=== PATIENT | female | born 1955 | race Caucasian/White ===

== ENCOUNTER 2017-05-23 13:25 | Outpatient (CLI) | payer OTHER ==
[2017-05-23 12:49] LABS: BASOPHILS % (AUTO) 0.4 %; EOSINOPHILS # (AUTO) 0.2 10^3/uL (0.0-0.7); EOSINOPHILS % (AUTO) 4.3 %; HCT - HEMATOCRIT 41.9 % (37.0-47.0); HGB - HEMOGLOBIN 14.1 g/dL (12.0-16.0); LYMPHOCYTES # (AUTO) 1.5 10^3/uL (1.5-3.5); LYMPHOCYTES % (AUTO) 30.4 %; MEAN CORPUSCULAR HEMOGLOBIN 32.3 pg (27.0-31.0); MEAN CORPUSCULAR HGB CONC 33.6 g/dL (32.0-36.0); MEAN PLATELET VOLUME 8.1 fL (7.9-10.8); MONOCYTES # (AUTO) 0.3 10^3/uL (0.0-1.0); MONOCYTES % (AUTO) 6.6 %; NEUTROPHILS # (AUTO) 2.9 10^3/uL (1.5-6.6); NEUTROPHILS % (AUTO) 58.3 %; NUCLEATED RED BLOOD CELLS AUTO 0.1 /100WBC; RED BLOOD COUNT 4.36 10^6/uL (4.20-5.40); RED CELL DISTRIBUTION WIDTH 13.9 % (12.0-15.0); UNCORRECTED WHITE BLOOD COUNT 4.9 x10^3/uL; WHITE BLOOD COUNT 4.9 x10^3/uL (4.8-10.8)
[2017-05-23 13:02] LABS: ALBUMIN/GLOBULIN RATIO 1.5 (1.0-2.2); BILIRUBIN,TOTAL 0.8 mg/dL (0.2-1.0); BUN - BLOOD UREA NITROGEN 14 mg/dL (6-20); CALCIUM 9.2 mg/dL (8.5-10.3); CARBON DIOXIDE - CO2 26 mmol/L (21-32); CHLORIDE 103 mmol/L (101-111); CHOL/HDL RATIO 2.5 (<4.4); CHOLESTEROL 216 mg/dL; CREATININE 0.8 mg/dL (0.4-1.0); GFR - MDRD 73 (>89); GLUCOSE 98 mg/dL (70-100); HDL CHOLESTEROL 85 mg/dL; LDL/HDL RATIO 1.3 (<4.4); POTASSIUM 3.9 mmol/L (3.5-5.0); SODIUM 137 mmol/L (135-145); TRIGLYCERIDES 86 mg/dL; VLDL CHOLESTEROL 17 mg/dL
== END 2017-05-23 13:26 | disposition home or self-care (01) ==
LOC: LAB.WCP 13:25
PROVIDERS: ATTEND Family Medicine
DX: Z00.00 Encounter for general adult medical examination without abnormal findings (principal)
CPT/HCPCS: 36415; 80053; 80061; 84443; 85025

== ENCOUNTER 2017-06-01 16:13 | Outpatient (CLI) | payer OTHER ==
--- NOTE | 2017-06-05 13:44 | Mammography Report ---
DIGITAL SCREENING MAMMOGRAM: 06/01/2017 CLINICAL INDICATION: A 62-year-old nulliparous patient for screening. COMPARISON: 02/2016 TECHNIQUE: Routine CC and MLO projections were obtained of the breasts. FINDINGS: Scattered fibroglandular tissue is present within the breasts. There are no dominant kwame s, suspicious microcalcifications, or secondary signs of malignancy. In comparison to the previous st udies, there are no significant changes. ASSESSMENT: NO MAMMOGRAPHIC EVIDENCE OF MALIGNANCY. NO SIGNIFICANT INTERVAL CHANGES. RECOMMENDATION: Screening mammography is recommended annually. BIRADS category 1 - negative. STANDARD QUALIFYING STATEMENTS 1. This examination was reviewed with the aid of Computed-Aided Detection (CAD). 2. A negative or benign imaging report should not delay biopsy if clinically suspicious findings are present. Consider surgical consultation if warranted. More than 5% of cancers are not identified by i maging. 3. Dense breasts may obscure an underlying neoplasm. JOB #: [id number] EXT JOB #:[id number]
== END 2017-06-01 16:14 | disposition home or self-care (01) ==
LOC: DI 16:13
PROVIDERS: ATTEND Family Medicine
DX: Z12.31 Encounter for screening mammogram for malignant neoplasm of breast (principal)
CPT/HCPCS: 77067

== ENCOUNTER 2018-08-08 15:47 | Outpatient (CLI) | payer OTHER ==
--- NOTE | 2018-08-09 08:00 | Mammography Report ---
Reason: SCREENING MAMMO Procedure Date: 08/08/2018 Accession Number: [id number] / [id number] Procedure: JENNIFER - Screening Mammo w/Ector CPT Code: FULL RESULT: EXAM: Screening Mammo w/Ector DATE: 08/08/2018 4:17 PM CLINICAL HISTORY: Screening. No reported personal or family history of breast cancer. TECHNIQUE: Bilateral CC and MLO views were obtained. COMPARISON: 06/01/2017 and 03/17/2016 FINDINGS: The breasts demonstrate scattered fibroglandular densities bilaterally. Bilateral breasts: There are no suspicious masses, calcifications or areas of distortion. IMPRESSION: Negative examination RECOMMENDATION: Routine annual screening unless otherwise clinically indicated. BI-RADS CATEGORY 1: Negative STANDARD QUALIFYING STATEMENTS: 1. This examination was not reviewed with the aid of Computer-Aided Detection (CAD). 2. A negative or benign imaging report should not preclude biopsy if clinically suspicious findings are present. 3. Dense breasts may obscure an underlying neoplasm. 4. This examination was reviewed with the aid of 3D breast imaging (tomosynthesis).
== END 2018-08-08 15:48 | disposition home or self-care (01) ==
LOC: DI 15:47
DX: Z12.31 Encounter for screening mammogram for malignant neoplasm of breast (principal)
CPT/HCPCS: 77063; 77067

== ENCOUNTER 2019-07-02 10:46 | Day surgery (SDC) | payer OTHER ==
[2019-07-02] MEDS ORDERED: LACTATED RINGERS 1,000 ML IV ONE (11:02)
[2019-07-02] MEDS ORDERED: fentaNYL 250 MCG/5 ML VIAL IVP ONE (11:34)
[2019-07-02] MEDS ORDERED: MIDAZOLAM 2 MG/2 ML VIAL IVP ONE (11:34)
[2019-07-02 12:30] VITALS: BP 101/74
== END 2019-07-02 10:47 | disposition home or self-care (01) ==
LOC: SDS 10:46
PROVIDERS: ATTEND Internal Medicine Gastroenterology
PROC: 0DJD8ZZ Inspection of Lower Intestinal Tract, Via Natural or Artificial Opening Endoscopic (ICD-10-PCS; principal; 2019-07-02 12:00)
DX: Z12.11 Encounter for screening for malignant neoplasm of colon (principal); K57.30 Diverticulosis of large intestine without perforation or abscess without bleeding
CPT/HCPCS: 45378; J3010; J7120

== ENCOUNTER 2020-04-16 08:00 | Outpatient (CLI) | payer OTHER ==
[2020-04-16 18:07] LABS: BASOPHILS % (AUTO) 0.3 %; EOSINOPHILS # (AUTO) 0.2 10^3/uL (0.0-0.7); EOSINOPHILS % (AUTO) 2.4 %; LYMPHOCYTES # (AUTO) 1.7 10^3/uL (1.5-3.5); LYMPHOCYTES % (AUTO) 26.2 %; MEAN CORPUSCULAR HGB CONC 32.2 g/dL (32.0-36.0); MEAN CORPUSCULAR VOLUME 99.3 fL (81.0-99.0); MEAN PLATELET VOLUME 10.1 fL (7.9-10.8); MONOCYTES # (AUTO) 0.4 10^3/uL (0.0-1.0); MONOCYTES % (AUTO) 5.7 %; NEUTROPHILS # (AUTO) 4.1 10^3/uL (1.5-6.6); NEUTROPHILS % (AUTO) 65.2 %; PLT - PLATELET COUNT 304 10^3/uL (130-450); RED BLOOD COUNT 4.38 10^6/uL (4.20-5.40); RED CELL DISTRIBUTION WIDTH 14.3 % (12.0-15.0); WHITE BLOOD COUNT 6.3 x10^3/uL (4.8-10.8)
[2020-04-16 18:23] LABS: ALBUMIN 4.3 g/dL (3.2-5.5); ALBUMIN/GLOBULIN RATIO 1.4 (1.0-2.2); BILIRUBIN,TOTAL 0.4 mg/dL (0.2-1.0); CALCIUM 9.3 mg/dL (8.5-10.3); CREATININE 0.8 mg/dL (0.4-1.0); TOTAL PROTEIN 7.4 g/dL (6.7-8.2)
== END 2020-04-16 08:01 | disposition home or self-care (01) ==
LOC: LAB.WCP 08:00
PROVIDERS: ATTEND Family Medicine
DX: R10.9 Unspecified abdominal pain (principal)
CPT/HCPCS: 36415; 80053; 82150; 83690; 85025

== ENCOUNTER 2020-04-20 13:01 | Emergency (ER) | payer MEDICARE, OTHER ==
[2020-04-20] MEDS ORDERED: MAG HYDROX/AL HYDROX/SIMETH 30 ML UDC PO STA (13:56)
[2020-04-20] MEDS ORDERED: LIDOCAINE VISCOUS 2% 15 ML UDC MM STA (13:56)
[2020-04-20 13:57] LABS: BILIRUBIN,URINE NEGATIVE (NEGATIVE); GLUCOSE, URINE (UA) NEGATIVE (NEGATIVE); KETONES,URINE (UA) NEGATIVE (NEGATIVE); LEUKOCYTE ESTERASE, URINE NEGATIVE (NEGATIVE); NITRITE,URINE NEGATIVE (NEGATIVE); OCCULT BLOOD,URINE SMALL (NEGATIVE); PROTEIN,URINE NEGATIVE (NEGATIVE); UROBILINOGEN,URINE 0.2 (NORMAL) E.U./dL (NORMAL)
--- NOTE | 2020-04-20 13:58 | ED Physician Documentation ---
PD HPI ABD PAIN - Stated complaint Stated Complaint: ABD PX - Chief complaint Chief Complaint: Abd Pain - History obtained from History obtained from: Patient - Additional information Additional information: 65-year-old woman has been having upper abdominal pain for several months. It started as a migratory mild pain then progressed. Was associated with stress and was particularly bad a couple of months ago when her had a bypass. He did get better after starting Prilosec and got worse after starting Prilosec. She denies abdominal surgeries. She had a near syncopal episode when it was bad about a week ago. 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 04/20/20 - Allergies Allergies/Adverse Reactions: Allergies Allergy/AdvReac Type Severity Reaction Status Date / Time alendronate sodium Allergy Intermediate Rash Verified 04/20/20 13:24 [From Fosamax] cephalexin [From Keflex] Allergy Mild Rash Verified 04/20/20 13:24 - Social History Does the pt smoke?: No Smoking Status: Never smoker PD ED PE NORMAL - Vitals Vital signs reviewed: Yes - General General: Alert and oriented X 3, No acute distress - Cardiac Cardiac: RRR, No murmur - Respiratory Respiratory: No respiratory distress, Clear bilaterally - Abdomen Abdomen: Normal bowel sounds, Soft, Non tender - Derm Derm: Normal color, Warm and dry - Neuro Neuro: Alert and oriented X 3, No motor deficit, No sensory deficit, Normal speech Results - Vitals Vitals: Vital Signs - 24 hr 04/20/20 04/20/20 13:15 15:24 Temperature 37.1 C Heart Rate 100 82 Respiratory 18 20 Rate Blood Pressure 135/67 H 133/78 H O2 Saturation 98 98 Oxygen O2 Source Room air - Labs Labs: Laboratory Tests 04/20/20 04/20/20 04/20/20 13:39 13:52 13:52 WBC 6.4 RBC 4.03 L Hgb 13.5 Hct 39.0 MCV 96.8 MCH 33.5 H MCHC 34.6 RDW 13.4 Plt Count 273 MPV 9.6 Neut # (Auto) 4.3 Lymph # (Auto) 1.6 Frio # (Auto) 0.3 Eos # (Auto) 0.1 Baso # (Auto) 0.0 Absolute Nucleated RBC 0.00 Nucleated RBC % 0.0 Sodium 136 Potassium 3.5 Chloride 106 Carbon Dioxide 23 Anion Gap 7.0 BUN 20 Creatinine 0.8 Estimated GFR (MDRD) 72 L Glucose 171 H Calcium 8.8 Total Bilirubin 0.7 AST 22 ALT 20 Alkaline Phosphatase 58 Total Protein 6.7 Albumin 4.1 Globulin 2.6 Albumin/Globulin Ratio 1.6 Lipase 36 Urine Color YELLOW Urine Clarity CLEAR Urine pH 6.0 Ur Specific [place] 1.025 Urine Protein NEGATIVE Urine Glucose (UA) NEGATIVE Urine Ketones NEGATIVE Urine Occult Blood SMALL H Urine Nitrite NEGATIVE Urine Bilirubin NEGATIVE Urine Urobilinogen 0.2 (NORMAL) Ur Leukocyte Esterase NEGATIVE Urine RBC 0-5 Urine WBC 0-3 Ur Squamous Epith Cells FEW Squamous Urine Bacteria Rare Ur Microscopic Review INDICATED Urine Culture Comments NOT INDICATED PD MEDICAL DECISION MAKING - ED course ED course: 65-year-old woman presents with ongoing sometimes progressive epigastric pain, the response to PPI suggests ulcer but was referred here to evaluate the gallbladder. Ultrasound negative for same but incidental finding questioned on ultrasound and followed up with a CT showing hemangioma. Departure - Departure Disposition: 01 Home, Self Care Clinical Impression: Abdominal pain Condition: Good Record reviewed to determine appropriate education?: Yes Instructions: ED Abdominal Pain Unkn Cause Prescriptions: Omeprazole 20 mg PO DAILY #90 capsule. Comments: Based on your description and pattern this seems most consistent with gastritis or an ulcer. You should restart a proton pump inhibitor such as omeprazole and a prescription is provided. Return for new or worsening symptoms. Follow-up with your doctor as needed. The incidental lesion in your liver is consistent with a hemangioma and no follow-up is necessary for that.
[2020-04-20 14:01] LABS: CLARITY,URINE CLEAR (CLEAR)
[2020-04-20 14:11] LABS: BACTERIA,URINE Rare /HPF (None Seen); RBC,URINE 0-5 /HPF (0-5); SQUAMOUS EPITHELIAL CELL,UR FEW Squamous (<= Few)
[2020-04-20 14:12] LABS: BASOPHILS % (AUTO) 0.3 %; EOSINOPHILS # (AUTO) 0.1 10^3/uL (0.0-0.7); EOSINOPHILS % (AUTO) 1.9 %; HGB - HEMOGLOBIN 13.5 g/dL (12.0-16.0); LYMPHOCYTES # (AUTO) 1.6 10^3/uL (1.5-3.5); LYMPHOCYTES % (AUTO) 24.4 %; MEAN CORPUSCULAR HEMOGLOBIN 33.5 pg (27.0-31.0); MEAN CORPUSCULAR HGB CONC 34.6 g/dL (32.0-36.0); MEAN CORPUSCULAR VOLUME 96.8 fL (81.0-99.0); MEAN PLATELET VOLUME 9.6 fL (7.9-10.8); MONOCYTES # (AUTO) 0.3 10^3/uL (0.0-1.0); MONOCYTES % (AUTO) 5.3 %; NEUTROPHILS # (AUTO) 4.3 10^3/uL (1.5-6.6); NEUTROPHILS % (AUTO) 67.9 %; PLT - PLATELET COUNT 273 10^3/uL (130-450); RED BLOOD COUNT 4.03 10^6/uL (4.20-5.40); RED CELL DISTRIBUTION WIDTH 13.4 % (12.0-15.0); WHITE BLOOD COUNT 6.4 x10^3/uL (4.8-10.8)
[2020-04-20 14:13] LABS: ALBUMIN 4.1 g/dL (3.2-5.5); ALBUMIN/GLOBULIN RATIO 1.6 (1.0-2.2); BILIRUBIN,TOTAL 0.7 mg/dL (0.2-1.0); CALCIUM 8.8 mg/dL (8.5-10.3); CREATININE 0.8 mg/dL (0.4-1.0); TOTAL PROTEIN 6.7 g/dL (6.7-8.2)
--- NOTE | 2020-04-20 15:40 | Ultrasound Report ---
PROCEDURE: Abdomen Limited INDICATIONS: RUQ pain TECHNIQUE: Real-time scanning was performed of the abdominal and retroperitoneal organs, with image documentatio n. Color and pulse Doppler interrogation was also performed of the hepatic and splenic vessels, or o f the lesion of interest. COMPARISON: None. FINDINGS: Liver: Liver is normal in size and mildly increased in echogenicity. A focal lesion with heterogeneo us echogenicity is seen in the left hepatic lobe measuring 2.6 x 2.5 x 2.8 cm. Gallbladder: The gallbladder is mildly contracted, most likely related to timing of the most recent meal. There is no gallbladder wall thickening, gallstones, or pericholecystic fluid. Biliary ducts: No intrahepatic biliary ductal dilatation. Extrahepatic bile duct is 4 mm in caliber . Normal biliary caliber is 6-7 mm or less, or 10 mm or less post-cholecystectomy. Pancreas: Visualized portions of the pancreas appear normal. Kidneys: The right kidney is normal in size measuring 9.1 cm. A 5 mm echogenic focus in the interpol ar region of the right kidney is most likely a nonobstructing calculus despite the lack of posterior shadowing. No hydronephrosis. No solid renal masses. Miscellaneous: No free right upper quadrant fluid. IMPRESSION: 1. A heterogeneous masslike lesion is seen in the left hepatic lobe measuring 2.6 x 2.5 x 2.8 cm. Di fferential considerations include benign and malignant processes. Contrast enhanced CT is recommended for further evaluation. 2. Mildly increased hepatic echogenicity is nonspecific, but most commonly encountered in the settin g of diffuse hepatic steatosis. Other causes of hepatocellular disease are not excluded and clinical correlation is recommended. 3. Nonobstructing 5 mm calculus in the interpolar region of the right kidney. No hydronephrosis. 4. Normal gallbladder without gallstones or signs of cholecystitis. Reviewed by: Jean Claude Hatch MD on 04/20/2020 3:39 PM PDT Approved by: Jean Claude Hatch MD on 04/20/2020 3:39 PM PDT Station ID: [id number]
[2020-04-20] MEDS ORDERED: IOVERSOL 320 100 ML VIAL IVP ONE ×2 (15:44→16:17)
--- NOTE | 2020-04-20 16:40 | CT Report ---
PROCEDURE: ABDOMEN W/WO INDICATIONS: LIVER PROTOCOL FOR ABN SONOGRAM, IV ONLY CONTRAST: IV CONTRAST: Optiray 320 ml: 100 PO CONTRAST: *NO PO CONTRAST TECHNIQUE: 4 phase scanning was performed. After the administration of intravenous contrast, 5 mm thick section s acquired from the diaphragm to the symphysis. 5 mm coronal and sagittal reformats were acquired. For radiation dose reduction, the following was used: automated exposure control, adjustment of mA a nd/or kV according to patient size. COMPARISON: Abdominal ultrasound dated 04/20/2020 FINDINGS: Image quality: Excellent. Lung bases: Lung bases are clear. Heart size is normal. Liver: A hypodense lesion is seen in the peripheral portion of hepatic segment 2 measuring 2.7 x 2.1 x 1.2 cm, corresponding to the lesion seen on the abdominal ultrasound performed earlier the same da y. This lesion demonstrates peripheral nodular discontinuous enhancement on arterial phases with prog ressive filling on more delayed phases, compatible with a benign hemangioma. No additional focal lesi on is seen in the liver. Other solid organs: Gallbladder appears normal. Biliary system is non dilated. Pancreas is normal in morphology. Spleen is normal in size and enhancement. No adrenal nodules. Both kidneys demonstr ate normal size and enhancement, without hydronephrosis. A 3 mm nonobstructing calculus is seen in t he interpolar region of the right kidney. There is no hydronephrosis. Nodes and vessels: No retroperitoneal or mesenteric adenopathy by size criteria. Aorta and inferior vena cava are normal in size. Minimal atherosclerotic calcifications are seen in the aorta. Bowel and peritoneum: Unenhanced bowel loops are normal in caliber. No free fluid or air. Bones: No suspicious bony lesions. No vertebral body compression fractures. Degenerative changes a re seen in the included lumbar spine. Miscellaneous: No ventral hernias. IMPRESSION: 1. Focal 2.7 cm lesion in the peripheral left hepatic lobe corresponds to the lesion seen on ultraso und from earlier the same day and has the imaging characteristics of a benign hemangioma. No addition al liver lesion is seen. 2. Nonobstructing 3 mm calculus in the interpolar region of the right kidney. No hydronephrosis. Reviewed by: Jean Claude Hatch MD on 04/20/2020 4:39 PM PDT Approved by: Jean Claude Hatch MD on 04/20/2020 4:39 PM PDT Station ID: [id number]
[2020-04-20 16:52] VITALS: BP 130/69
== END 2020-04-20 17:00 | disposition home or self-care (01) ==
LOC: ED 13:01
DX: R10.13 Epigastric pain (principal)
CPT/HCPCS: 36415; 74170; 76705; 80053; 81001; 83690; 85025; 99284; A9270; Q9967; 81003; 87086

== ENCOUNTER 2020-09-08 08:57 | Emergency (ER) | payer OTHER, MEDICARE ==
--- NOTE | 2020-09-08 09:58 | ED Physician Documentation ---
History of Present Illness - Stated complaint Stated Complaint: FEVER/FEMALE - Chief complaint Chief Complaint: UTI - History obtained from History obtained from: Patient - History of Present Illness Timing: How many weeks ago (1) Pain level max: 0 Pain level now: 0 - Additonal information Additional information: Patient is a 65-year-old female who presents to the emergency department stating that she has had dysuria for the past week or so. Increased urinary frequency. She had fever and chills last night. Fever was subjective. Has mild dysuria at the end of her stream. No back pain. No abdominal pain. No vomiting. No cough. No congestion. Contacted her doctor who referred her here for a uri nalysis. 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 04/20/20 Sulfamethox/Trimeth 800/160 1 each PO BID #14 tablet 09/08/20 [Bactrim Ds 800/160] - Allergies Allergies/Adverse Reactions: Allergies Allergy/AdvReac Type Severity Reaction Status Date / Time alendronate sodium Allergy Intermediate Rash Verified 09/08/20 09:08 [From Fosamax] cephalexin [From Keflex] Allergy Mild Rash Verified 09/08/20 09:08 - Social History Does the pt smoke?: No Smoking Status: Never smoker PD ED PE NORMAL - Vitals Vital signs reviewed: Yes - General General: Alert and oriented X 3, No acute distress, Well developed/nourished - HEENT HEENT: Moist mucous membranes - Neck Neck: Supple, no meningeal sign - Cardiac Cardiac: RRR, Strong equal pulses - Respiratory Respiratory: No respiratory distress, Clear bilaterally - Abdomen Abdomen: Soft, Non tender, Non distended - Back Back: No CVA TTP - Derm Derm: Warm and dry - Extremities Extremities: No edema - Neuro Neuro: Alert and oriented X 3 - Psych Psych: Normal mood, Normal affect Results - Vitals Vitals: Vital Signs - 24 hr 09/08/20 09/08/20 09:08 10:29 Temperature 37.3 C 36.9 C Heart Rate 105 H 99 Respiratory 18 16 Rate Blood Pressure 131/82 H 128/76 O2 Saturation 100 100 Oxygen O2 Source Room air - Labs Labs: Laboratory Tests 09/08/20 09:50 Urine Color YELLOW Urine Clarity HAZY Urine pH 6.5 Ur Specific [place] 1.010 Urine Protein NEGATIVE Urine Glucose (UA) NEGATIVE Urine Ketones NEGATIVE Urine Occult Blood MODERATE H Urine Nitrite NEGATIVE Urine Bilirubin NEGATIVE Urine Urobilinogen 0.2 (NORMAL) Ur Leukocyte Esterase SMALL H Urine RBC 6-10 H Urine WBC >25 H Ur Squamous Epith Cells FEW Squamous Urine Bacteria Few Ur Microscopic Review INDICATED Urine Culture Comments INDICATED PD MEDICAL DECISION MAKING - ED course Complexity details: reviewed results, re-evaluated patient, considered differential, d/w patient ED course: Patient with a UTI. We will place on antibiotics for this. Patient is well- appearing, nontoxic. Afebrile. No CVA tenderness. No evidence of urosepsis. No evidence of pyelonephritis. Patient counseled regarding signs and symptoms for which I believe and urgent re-evaluation would be necessary. Patient with good understanding of and agreement to plan and is comfortable going home at this time This document was made in part using voice recognition software. While efforts are made to proofread this document, sound alike and grammatical errors may occur. Departure - Departure Disposition: 01 Home, Self Care Clinical Impression: Urinary tract infection Qualifiers: Urinary tract infection type: acute cystitis Hematuria presence: without hematuria Qualified Code(s): N30.00 - Acute cystitis without hematuria Condition: Good Instructions: ED UTI Cystitis Female Follow-Up: Henrietta Joe DO [Primary Care Provider] - Within 1 week Prescriptions: Sulfamethox/Trimeth 800/160 [Bactrim Ds 800/160] 1 each PO BID #14 tablet Comments: Take all antibiotics until gone. Return if you worsen. Follow-up with your doctor for further care. Discharge Date/Time: 09/08/20 10:36
[2020-09-08 10:01] LABS: BILIRUBIN,URINE NEGATIVE (NEGATIVE); GLUCOSE, URINE (UA) NEGATIVE (NEGATIVE); KETONES,URINE (UA) NEGATIVE (NEGATIVE); LEUKOCYTE ESTERASE, URINE SMALL (NEGATIVE); NITRITE,URINE NEGATIVE (NEGATIVE); OCCULT BLOOD,URINE MODERATE (NEGATIVE); PH,URINE 6.5 PH (5.0-7.5); PROTEIN,URINE NEGATIVE (NEGATIVE); UROBILINOGEN,URINE 0.2 (NORMAL) E.U./dL (NORMAL)
[2020-09-08 10:04] LABS: CLARITY,URINE HAZY (CLEAR)
[2020-09-08 10:17] LABS: BACTERIA,URINE Few /HPF (None Seen); SQUAMOUS EPITHELIAL CELL,UR FEW Squamous (<= Few)
[2020-09-08 10:30] VITALS: BP 128/76
== END 2020-09-08 10:36 | disposition home or self-care (01) ==
LOC: ED 08:57
DX: N30.00 Acute cystitis without hematuria (principal)
CPT/HCPCS: 81001; 81003; 87086; 87181; 99283

== ENCOUNTER 2021-04-02 09:21 | Outpatient (CLI) | payer OTHER, MEDICARE ==
--- NOTE | 2021-04-05 16:39 | Mammography Report ---
BILATERAL DIGITAL SCREENING MAMMOGRAM 3D/2D: 04/02/2021 CLINICAL: Routine screening. Comparison is made to exams dated: 08/08/2018 mammogram, 06/01/2017 mammogram, and 03/17/2016 mammogr am - [facility]. There are scattered fibroglandular elements in both breasts. No significant masses, calcifications, or other findings are seen in either breast. There has been no significant interval change. IMPRESSION: NEGATIVE There is no mammographic evidence of malignancy. A 1 year screening mammogram is recommended. This exam was interpreted at Station ID: [id number]. NOTE: For mammograms, a report in lay terms will be sent to the patient. Approximately 15% of breast malignancies will not be visualized mammographically. In the management of a palpable breast mass, a negative mammogram must not discourage biopsy of a clinically suspicious lesion. Electronically Signed By: Dioni Anton M.D. aty/penrad:04/02/2021 12:02:25 ACR BI-RADS Category 1: Negative 3341F PARENCHYMAL PATTERN: (A) - The breast(s) demonstrate(s) scattered fibroglandular densities. BI-RADS CATEGORY: (1) - 1 RECOMMENDATION: (ANNUAL) - Recommend routine annual screening mammography. [id number] 1 year screening LATERALITY: (B)
== END 2021-04-02 09:22 | disposition home or self-care (01) ==
LOC: DI 09:21
DX: Z12.31 Encounter for screening mammogram for malignant neoplasm of breast (principal)

== ENCOUNTER 2021-06-01 10:55 | Outpatient (CLI) | payer OTHER, MEDICARE ==
[2021-06-01 17:53] LABS: BASOPHILS % (AUTO) 0.5 %; EOSINOPHILS # (AUTO) 0.1 10^3/uL (0.0-0.7); EOSINOPHILS % (AUTO) 1.9 %; HCT - HEMATOCRIT 40.8 % (37.0-47.0); HGB - HEMOGLOBIN 13.3 g/dL (12.0-16.0); LYMPHOCYTES # (AUTO) 1.4 10^3/uL (1.5-3.5); MEAN CORPUSCULAR HGB CONC 32.6 g/dL (32.0-36.0); MEAN CORPUSCULAR VOLUME 98.1 fL (81.0-99.0); MEAN PLATELET VOLUME 10.5 fL (7.9-10.8); MONOCYTES # (AUTO) 0.4 10^3/uL (0.0-1.0); MONOCYTES % (AUTO) 6.3 %; NEUTROPHILS # (AUTO) 3.8 10^3/uL (1.5-6.6); PLT - PLATELET COUNT 274 10^3/uL (130-450); RED BLOOD COUNT 4.16 10^6/uL (4.20-5.40); RED CELL DISTRIBUTION WIDTH 14.2 % (12.0-15.0); WHITE BLOOD COUNT 5.7 x10^3/uL (4.8-10.8)
[2021-06-01 18:11] LABS: ALBUMIN 4.3 g/dL (3.2-5.5); ALBUMIN/GLOBULIN RATIO 1.4 (1.0-2.2); ALKALINE PHOSPHATASE 43 IU/L (42-121); ALT ALANINE AMINOTRANSFERASE 18 IU/L (10-60); AST ASPARTATE AMINOTRANSFERASE 22 IU/L (10-42); BILIRUBIN,TOTAL 0.7 mg/dL (0.2-1.0); BUN - BLOOD UREA NITROGEN 16 mg/dL (6-20); CALCIUM 9.2 mg/dL (8.5-10.3); CARBON DIOXIDE - CO2 27 mmol/L (21-32); CHLORIDE 99 mmol/L (101-111); CHOL/HDL RATIO 2.6 (<4.4); CHOLESTEROL 229 mg/dL; CREATININE 0.8 mg/dL (0.4-1.0); GFR - MDRD 72 (>89); GLUCOSE 97 mg/dL (70-100); HDL CHOLESTEROL 87 mg/dL; LDL CHOLESTEROL,CALCULATED 117 mg/dL; LDL/HDL RATIO 1.3 (<4.4); POTASSIUM 3.9 mmol/L (3.5-5.0); SODIUM 136 mmol/L (135-145); TOTAL PROTEIN 7.3 g/dL (6.7-8.2); TRIGLYCERIDES 125 mg/dL; VLDL CHOLESTEROL 25 mg/dL
== END 2021-06-01 23:59 | disposition home or self-care (01) ==
LOC: LAB.WCP 10:55
PROVIDERS: ATTEND Family Medicine
DX: E78.5 Hyperlipidemia, unspecified (principal); R73.01 Impaired fasting glucose; M85.88 Other specified disorders of bone density and structure, other site
CPT/HCPCS: 36415; 80053; 80061; 83721; 85025

== ENCOUNTER 2021-06-07 07:43 | Outpatient (CLI) | payer OTHER, MEDICARE ==
--- NOTE | 2021-06-07 16:12 | DEXA Report ---
PROCEDURE: Dexa Spine and/or Hip INDICATIONS: OSTEOPENIA TECHNIQUE: Dual energy x-ray absorptiometry (DXA) was performed on a [employer] System. Regions measur ed are the AP Spine, femoral neck, and if needed forearm. COMPARISON: 03/09/2016. FINDINGS: Lumbar Spine: Bone Mineral Density 1.208 g/cm/cm,T score 0.2, normal Left Hip: Bone Mineral Density 0.859 g/cm/cm,T score minus 1., Osteopenia Left Femoral Neck: Bone Mineral Density 0.738 g/cm/cm, T score -2.2, osteopenia (T score greater or equal to -1.0: NORMAL) (T score from -1.1 to -2.4: OSTEOPENIA) (T score less than or equal to -2.5 to: OSTEOPOROSIS) Impression: Osteopenia. Bone mineral density has decreased 0.2% in the interval since prior exam obta ined 03/17/2016. Patients with diagnosis of osteoporosis or osteopenia should have regular bone mineral density assess ment. For those eligible for Medicare, routine testing is allowed once every 2 years. Testing frequ ency can be increased for patients who have rapidly progressing disease or for those who are receivin g medical therapy to restore bone mass. Reviewed by: Radha Li MD, PhD on 06/07/2021 4:10 PM PDT Approved by: Radha Li MD, PhD on 06/07/2021 4:10 PM PDT Station ID: [id number]
== END 2021-06-07 07:44 | disposition home or self-care (01) ==
LOC: DI 07:43
PROVIDERS: ATTEND Family Medicine
DX: M85.89 Other specified disorders of bone density and structure, multiple sites (principal)

== ENCOUNTER 2021-06-07 07:54 | Outpatient (CLI) | payer OTHER, MEDICARE ==
--- NOTE | 2021-06-07 08:59 | XRAY Report ---
PROCEDURE: Cervical Spine 2 View INDICATIONS: NECK PAIN,ACUTE PARESTHESIA,HANDS, LBP TECHNIQUE: 3 view(s) of the cervical spine were acquired. COMPARISON: None. FINDINGS: C-SPINE: No acute, displaced fracture or malalignment. The vertebral body heights are maintained.Mini mal grade 1 anterolisthesis at C3-4 and C4-5. Mild to moderate disc height loss at C5-7. Uncovertebra l/facet arthrosis is noted. SOFT TISSUES: No prevertebral soft tissue thickening. IMPRESSION: 1.No acute osseous abnormality of the cervical spine. Reviewed by: Spencer Torres MD on 06/07/2021 8:58 AM PDT Approved by: Spencer Torres MD on 06/07/2021 8:58 AM PDT Station ID: [id number]
--- NOTE | 2021-06-07 09:00 | XRAY Report ---
PROCEDURE: SI Joints INDICATIONS: NECK PAIN,ACUTE PARESTHESIA,HANDS, LBP,SACROILIITIS TECHNIQUE: 3 views of the sacroiliac joints were acquired. COMPARISON: None. FINDINGS: BONES: No acute, displaced fracture or dislocation. The sacroiliac joints are maintained. No widening of the pubic symphysis. SOFT TISSUES: No focal abnormality. IMPRESSION: 1.No acute osseous abnormality. Reviewed by: Spencer Torres MD on 06/07/2021 8:59 AM PDT Approved by: Spencer Torres MD on 06/07/2021 8:59 AM PDT Station ID: [id number]
--- NOTE | 2021-06-07 09:02 | XRAY Report ---
PROCEDURE: Lumbar Spine 2 View INDICATIONS: NECK PAIN,ACUTE PARESTHESIA,HANDS, LBP,SACROILITIS TECHNIQUE: 2 views of the lumbar spine were acquired. COMPARISON: None. FINDINGS: L-SPINE: 5 nonrib-bearing vertebrae. Small ribs at T12. No acute displaced fracture or traumatic subluxation. Minimal grade 1 anterolisthesis at L4-5. The ve rtebral body heights are preserved. Mild to moderate disc height loss at L4-S1. Facet arthrosis causi ng neural foraminal narrowing at L5-S1. The sacroiliac joints are patent. SOFT TISSUES: No focal abnormality. IMPRESSION: 1.No acute osseous abnormality of the lumbar spine. Reviewed by: Spencer Torres MD on 06/07/2021 9:01 AM PDT Approved by: Spencer Torres MD on 06/07/2021 9:01 AM PDT Station ID: [id number]
== END 2021-06-07 07:55 | disposition home or self-care (01) ==
LOC: DI 07:54
PROVIDERS: ATTEND Family Medicine
DX: M54.2 Cervicalgia (principal); R20.2 Paresthesia of skin; M54.50 Low back pain, unspecified; M46.1 Sacroiliitis, not elsewhere classified; M85.89 Other specified disorders of bone density and structure, multiple sites

== ENCOUNTER 2021-06-14 09:58 | Outpatient (CLI) | payer OTHER, MEDICARE | END 2021-06-14 23:59 | LOC: LAB.N 09:58 | PROVIDERS: ATTEND Physician Assistant Medical | DX: N30.00 Acute cystitis without hematuria (principal) | CPT/HCPCS: 87086; 87181 ==

== ENCOUNTER 2021-06-22 11:41 | Outpatient (CLI) | payer OTHER, MEDICARE | END 2021-06-22 23:59 | LOC: LAB.N 11:41 | PROVIDERS: ATTEND Family Medicine | DX: R39.9 Unspecified symptoms and signs involving the genitourinary system (principal) | CPT/HCPCS: 87086 ==

== ENCOUNTER 2021-10-21 08:00 | Outpatient (CLI) | payer OTHER, MEDICARE | END 2021-10-21 23:59 | LOC: LAB.N 08:00 | PROVIDERS: ATTEND Registered Nurse | DX: R30.0 Dysuria (principal) | CPT/HCPCS: 87077; 87086; 87181 ==

== ENCOUNTER 2022-03-21 08:00 | Outpatient (CLI) | payer OTHER, MEDICARE | END 2022-03-21 23:59 | disposition home or self-care (01) | LOC: LAB.N 08:00 | PROVIDERS: ATTEND Registered Nurse | DX: N30.00 Acute cystitis without hematuria (principal) | CPT/HCPCS: 87077; 87086; 87181 ==

== ENCOUNTER 2022-04-28 13:53 | Outpatient (CLI) | payer OTHER, MEDICARE ==
--- NOTE | 2022-04-29 08:05 | Mammography Report ---
BILATERAL DIGITAL SCREENING MAMMOGRAM 3D/2D: 04/28/2022 CLINICAL: Routine screening. Comparison is made to exams dated: 04/02/2021 mammogram, 06/01/2017 mammogram, 08/08/2018 mammogram, and 03/17/2016 mammogram - [facility]. There are scattered areas of fibroglandular density in both breasts (category b / 25%-50% glandular t issue). No significant masses, calcifications, or other findings are seen in either breast. There has been no significant interval change. IMPRESSION: NEGATIVE There is no mammographic evidence of malignancy. A 1 year screening mammogram is recommended. Based on the Tyrer Cuzick model (a risk assessment model) the patients lifetime risk is 5.5% and her 10 year risk is 2.9%. According to the ACR, ACS, and NCCN guidelines, an annual breast MRI exam josé luis g with mammogram is recommended if the patients lifetime risk is 20% or greater. This exam was interpreted at Station ID: [id number]. NOTE: For mammograms, a report in lay terms will be sent to the patient. Approximately 15% of breast malignancies will not be visualized mammographically. In the management of a palpable breast mass, a negative mammogram must not discourage biopsy of a clinically suspicious lesion. Electronically Signed By: Douglas Britt M.D. [facility] [place]:04/28/2022 16:47:33 ACR BI-RADS Category 1: Negative 3341F PARENCHYMAL PATTERN: (A) - The breast(s) demonstrate(s) scattered fibroglandular densities. BI-RADS CATEGORY: (1) - 1 RECOMMENDATION: (ANNUAL) - Recommend routine annual screening mammography. [id number] 1 year screening LATERALITY: (B)
== END 2022-04-28 13:54 | disposition home or self-care (01) ==
LOC: DI 13:53
DX: Z12.31 Encounter for screening mammogram for malignant neoplasm of breast (principal)

== ENCOUNTER 2022-05-24 07:12 | Outpatient (CLI) | payer OTHER, MEDICARE ==
[2022-05-24 12:23] LABS: BASOPHILS % (AUTO) 0.5 %; EOSINOPHILS # (AUTO) 0.2 10^3/uL (0.0-0.7); EOSINOPHILS % (AUTO) 4.1 %; HCT - HEMATOCRIT 40.5 % (37.0-47.0); HGB - HEMOGLOBIN 13.6 g/dL (12.0-16.0); MEAN CORPUSCULAR HEMOGLOBIN 32.2 pg (27.0-31.0); MEAN CORPUSCULAR HGB CONC 33.6 g/dL (32.0-36.0); MEAN CORPUSCULAR VOLUME 95.7 fL (81.0-99.0); MEAN PLATELET VOLUME 9.8 fL (7.9-10.8); MONOCYTES # (AUTO) 0.4 10^3/uL (0.0-1.0); MONOCYTES % (AUTO) 7.2 %; NEUTROPHILS % (AUTO) 52.7 %; PLT - PLATELET COUNT 289 10^3/uL (130-450); RED BLOOD COUNT 4.23 10^6/uL (4.20-5.40); WHITE BLOOD COUNT 5.7 x10^3/uL (4.8-10.8)
[2022-05-24 13:31] LABS: ALBUMIN/GLOBULIN RATIO 1.4 (1.0-2.2); ALKALINE PHOSPHATASE 45 IU/L (42-121); ALT ALANINE AMINOTRANSFERASE 21 IU/L (10-60); AST ASPARTATE AMINOTRANSFERASE 22 IU/L (10-42); BILIRUBIN,TOTAL 0.6 mg/dL (0.2-1.0); BUN - BLOOD UREA NITROGEN 21 mg/dL (6-20); CALCIUM 9.3 mg/dL (8.5-10.3); CARBON DIOXIDE - CO2 25 mmol/L (21-32); CHLORIDE 103 mmol/L (101-111); CHOL/HDL RATIO 2.5 (<4.4); CHOLESTEROL 209 mg/dL; CREATININE 0.8 mg/dL (0.4-1.0); GFR - MDRD 72 (>89); GLUCOSE 98 mg/dL (70-100); HDL CHOLESTEROL 84 mg/dL; LDL CHOLESTEROL,CALCULATED 112 mg/dL; LDL/HDL RATIO 1.3 (<4.4); POTASSIUM 4.2 mmol/L (3.5-5.0); SODIUM 138 mmol/L (135-145); TOTAL PROTEIN 6.9 g/dL (6.7-8.2); TRIGLYCERIDES 63 mg/dL; VLDL CHOLESTEROL 13 mg/dL
[2022-05-24 14:01] LABS: THYROID STIMULATING HORMONE 1.52 uIU/mL (0.34-5.60)
== END 2022-05-24 07:13 | disposition home or self-care (01) ==
LOC: LAB.N 07:12
PROVIDERS: ATTEND Physician Assistant
DX: E78.5 Hyperlipidemia, unspecified (principal); Z51.81 Encounter for therapeutic drug level monitoring; Z13.29 Encounter for screening for other suspected endocrine disorder
CPT/HCPCS: 36415; 80053; 80061; 83721; 84443; 85025

== ENCOUNTER 2022-06-07 12:59 | Outpatient (CLI) | payer OTHER, MEDICARE ==
--- NOTE | 2022-06-07 15:40 | XRAY Report ---
PROCEDURE: Cervical Spine Comp w/Flex/Ext INDICATIONS: PARESTHESIA, HANDS TECHNIQUE: 7 views of the cervical spine were acquired including flexion and extension oblique views . COMPARISON: None. FINDINGS: Bones: No fractures or dislocations to the T1 level. There is trace, approximately 2 to 3 mm of C3- C4 and C4-C5 anterolisthesis. No suspicious bony lesions. Moderate C5-C6 and C6 on C7 degenerative di sc disease. Mild facet appear to noted throughout the cervical spine. There is normal range of motion between flexion and extension, with preserved normal bony alignment. Oblique views demonstrate mild bilateral C3-C4, C4-C5, C5-C6 and C6-7 C7 neural foraminal narrowing. Soft tissues: Prevertebral soft tissues are normal in thickness. IMPRESSION: 1. Multilevel degenerative disc disease. 2. Multilevel facet arthropathy. 3. No fracture. No acute osseous lesion. If there is continued clinical concern for pathology, then M RI should be considered for further evaluation. Reviewed by: Radha Li MD, PhD on 06/07/2022 3:38 PM PDT Approved by: Radha Li MD, PhD on 06/07/2022 3:38 PM PDT Station ID: [id number]
== END 2022-06-07 13:00 | disposition home or self-care (01) ==
LOC: DI.N 12:59
PROVIDERS: ATTEND Physician Assistant
DX: R20.2 Paresthesia of skin (principal); M43.12 Spondylolisthesis, cervical region; M47.812 Spondylosis without myelopathy or radiculopathy, cervical region; M50.323 Other cervical disc degeneration at C6-C7 level; M48.02 Spinal stenosis, cervical region

== ENCOUNTER 2022-06-16 08:00 | Outpatient (CLI) | payer OTHER, MEDICARE ==
[2022-06-16 21:28] LABS: BILIRUBIN,URINE NEGATIVE (NEGATIVE); GLUCOSE, URINE (UA) NEGATIVE (NEGATIVE); KETONES,URINE (UA) NEGATIVE (NEGATIVE); LEUKOCYTE ESTERASE, URINE TRACE (NEGATIVE); NITRITE,URINE NEGATIVE (NEGATIVE); OCCULT BLOOD,URINE TRACE-INTA (NEGATIVE); PROTEIN,URINE NEGATIVE (NEGATIVE); UROBILINOGEN,URINE 0.2 (NORMAL) E.U./dL (NORMAL)
[2022-06-16 21:30] LABS: CLARITY,URINE CLEAR (CLEAR)
[2022-06-16 21:43] LABS: RBC,URINE 0-5 /HPF (0-5); WBC,URINE >25 /HPF (0-5)
[2022-06-16 21:44] LABS: BACTERIA,URINE Rare /HPF (None Seen); SQUAMOUS EPITHELIAL CELL,UR RARE Squamous (<= Few)
== END 2022-06-16 23:59 | disposition home or self-care (01) ==
LOC: LAB.N 08:00
PROVIDERS: ATTEND Emergency Medicine
DX: R30.0 Dysuria (principal)
CPT/HCPCS: 81001; 87077; 87086

== ENCOUNTER 2022-10-17 09:58 | Outpatient (CLI) | payer MEDICARE, OTHER ==
--- NOTE | 2022-10-17 15:58 | MRI Report ---
PROCEDURE: CERVICAL SPINE WO INDICATIONS: CERVICAL RADICULOPATHY TECHNIQUE: Noncontrast sagittal T1 spin echo and T2 fast spin echo, sagittal STIR, foraminal oblique sagittal T2 fast spin echo, and axial gradient echo or T2 fast spin echo through the cervical spine. COMPARISON: None. FINDINGS: Image quality: Excellent. Alignment and Curvature: Grade 1 anterolisthesis of C4-5. Bone Marrow: Marrow demonstrates normal overall signal. Spinal Cord: Visualized spinal cord has normal size and signal. No cerebellar tonsillar herniation. Paraspinous Soft Tissues: No paravertebral masses. Prevertebral soft tissues are normal in thicknes s. C2-C3: No disc bulge. The foramina and central canal are patent. C3-C4: Diffuse disc bulge and uncovertebral hypertrophy cause severe right and mild left foraminal stenosis. The central canal has mild stenosis. C4-C5: Diffuse disc bulge and uncovertebral hypertrophy cause moderate bilateral foraminal stenosis. The central canal has mild stenosis. C5-C6: Diffuse disc bulge with uncovertebral hypertrophy bilaterally and a disc osteophyte on the ri ght causes severe right and moderate left foraminal stenosis. The central canal has moderate stenosis asymmetric on the right. C6-C7: Diffuse disc bulge and uncovertebral hypertrophy cause mild right and moderate left foraminal stenosis. The central canal is patent. C7-T1: No disc bulge. The foramina and central canal are patent. IMPRESSION: 1. Multilevel degenerative disc disease most severe at C5-6 and C6-7 with severe right and moderate l eft foraminal stenosis at C5-6 and mild right and moderate left foraminal stenosis at C6-7 as detaile d above. 2. No abnormal cord signal. Reviewed by: Emil Fischer on 10/17/2022 3:56 PM PST Approved by: Emil Fischer on 10/17/2022 3:56 PM PST Station ID: [id number]
== END 2022-10-17 09:59 | disposition home or self-care (01) ==
LOC: DI 09:58
PROVIDERS: ATTEND Physician Assistant
DX: M50.122 Cervical disc disorder at C5-C6 level with radiculopathy (principal); M48.02 Spinal stenosis, cervical region

== ENCOUNTER 2023-07-06 07:11 | Outpatient (CLI) | payer MEDICARE ==
[2023-07-06 07:28] LABS: BASOPHILS % (AUTO) 0.5 %; EOSINOPHILS # (AUTO) 0.2 10^3/uL (0.0-0.7); EOSINOPHILS % (AUTO) 3.6 %; HCT - HEMATOCRIT 41.8 % (37.0-47.0); HGB - HEMOGLOBIN 14.1 g/dL (12.0-16.0); LYMPHOCYTES % (AUTO) 35.8 %; MEAN CORPUSCULAR HEMOGLOBIN 31.6 pg (27.0-31.0); MEAN CORPUSCULAR HGB CONC 33.7 g/dL (32.0-36.0); MEAN CORPUSCULAR VOLUME 93.7 fL (81.0-99.0); MEAN PLATELET VOLUME 9.2 fL (7.9-10.8); MONOCYTES # (AUTO) 0.4 10^3/uL (0.0-1.0); MONOCYTES % (AUTO) 7.3 %; NEUTROPHILS % (AUTO) 52.6 %; PLT - PLATELET COUNT 296 10^3/uL (130-450); RED BLOOD COUNT 4.46 10^6/uL (4.20-5.40); RED CELL DISTRIBUTION WIDTH 14.3 % (12.0-15.0); WHITE BLOOD COUNT 5.6 x10^3/uL (4.8-10.8)
[2023-07-06 07:39] LABS: ALBUMIN 4.4 g/dL (3.2-5.5); ALBUMIN/GLOBULIN RATIO 1.9 (1.0-2.2); ALKALINE PHOSPHATASE 55 IU/L (42-121); ALT ALANINE AMINOTRANSFERASE 18 IU/L (10-60); AST ASPARTATE AMINOTRANSFERASE 21 IU/L (10-42); BILIRUBIN,TOTAL 0.4 mg/dL (0.2-1.0); BUN - BLOOD UREA NITROGEN 19 mg/dL (6-20); CALCIUM 9.6 mg/dL (8.5-10.3); CARBON DIOXIDE - CO2 24 mmol/L (21-32); CHLORIDE 103 mmol/L (101-111); CHOL/HDL RATIO 2.6 (<4.4); CHOLESTEROL 212 mg/dL; CREATININE 0.8 mg/dL (0.6-1.3); GFR - MDRD 71 (>89); GLUCOSE 95 mg/dL (74-104); HDL CHOLESTEROL 83 mg/dL; LDL CHOLESTEROL,CALCULATED 107 mg/dL; LDL/HDL RATIO 1.3 (<4.4); POTASSIUM 4.1 mmol/L (3.5-4.5); SODIUM 137 mmol/L (135-145); TOTAL PROTEIN 6.7 g/dL (6.4-8.9); TRIGLYCERIDES 109 mg/dL (48-352); VLDL CHOLESTEROL 22 mg/dL
[2023-07-06 07:53] LABS: THYROID STIMULATING HORMONE 2.17 uIU/mL (0.34-5.60)
== END 2023-07-06 07:12 | disposition home or self-care (01) ==
LOC: LAB 07:11
PROVIDERS: ATTEND Physician Assistant
DX: M85.80 Other specified disorders of bone density and structure, unspecified site (principal); E78.5 Hyperlipidemia, unspecified
CPT/HCPCS: 36415; 80053; 80061; 82306; 83721; 84443; 85025

== ENCOUNTER 2023-07-07 12:04 | Outpatient (CLI) | payer MEDICARE | END 2023-07-07 12:05 | disposition critical access hospital (66) | LOC: EMS 12:04 | DX: S89.91XA Unspecified injury of right lower leg, initial encounter (principal); W54.1XXA Struck by dog, initial encounter; Y93.01 Activity, walking, marching and hiking; Y92.830 Public park as the place of occurrence of the external cause | CPT/HCPCS: A0425; A0429 ==

== ENCOUNTER 2023-07-07 12:20 | Emergency (ER) | payer MEDICARE ==
[2023-07-07 12:40] VITALS: BP 151/86; O2SAT 98
--- NOTE | 2023-07-07 12:43 | ED Physician Documentation ---
History of Present Illness - Stated complaint Stated Complaint: GLF - Chief complaint Chief Complaint: Ext Problem - History obtained from History obtained from: Patient - Additonal information Additional information: This is a very nice 68-year-old female who presented with right hamstring pain after she was jumped on by 2 dogs at the park. She feels as though her hamstring "tore" as she was jumped on by the dogs and then she fell onto the left hip onto the grass. She was not able to get up due to severe pain in the right hamstring and a spasming sensation as she tried to get up, therefore EMS was called and brought her to the ER. She states she sustained no other injuries in the fall, did not hit her head, has no neck pain, no loss of consciousness and denies any left hip pain in fact he has no hip or pelvis pain at all. She denies any knee or ankle pain. She states she actually feels quite a bit better now and feels like the discomfort is easing up since she arrived here. She has not taken any medication or other treatment prior to arrival. 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 04/20/20 Sulfamethox/Trimeth 800/160 1 each PO BID #14 tablet 09/08/20 [Bactrim Ds 800/160] - Allergies Allergies/Adverse Reactions: Allergies Allergy/AdvReac Type Severity Reaction Status Date / Time alendronate sodium Allergy Intermediate Rash Verified 07/07/23 12:38 [From Fosamax] cephalexin [From Keflex] Allergy Mild Rash Verified 07/07/23 12:38 - Social History Does the pt smoke?: No Smoking Status: Never smoker Does the pt drink ETOH?: No Does the pt have substance abuse?: No - Immunizations Immunizations are current?: Yes - POLST Patient has POLST: No PD ED PE NORMAL - Vitals Vital signs reviewed: Yes - General General: Alert and oriented X 3, No acute distress, Well developed/nourished - Derm Derm: Normal color, Warm and dry, No rash - Extremities Extremities: No deformity, No edema, No calf tenderness / cord, Other (Focal tenderness mid medial right hamstring. No hip or knee ttp, no thigh or femur ttp. No other ext injuries. Able to ambulate with slightly antalgic gait. 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 She initially could not walk on it though it has since eased up considerably and she is now able to walk with only mildly antalgic gait. She has no evidence of bony injury on physical exam. I discussed with patient that it be happy to obtain an x-ray though low suspicion for bony injury and patient declined. 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 She was advised to utilize ibuprofen or other NSAID and she may have Tylenol as needed. She can use a cool compress for the next couple of days and then heat as needed and the compression can be effective. 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 She states she has crutches at home and declines any crutches or Fabian wrap at this time. The patient was therefore discharged home in stable condition for likely hamstring tear. Departure - Departure Disposition: 01 Home, Self Care Clinical Impression: Hamstring muscle strain Qualifiers: Encounter type: initial encounter Laterality: right Qualified Code(s): S76.311A - Strain of muscle, fascia and tendon of the posterior muscle group at thigh level, right thigh, initial encounter Condition: Good Instructions: ED Strain Muscle Ext Comments: You likely have a strain or partial tear of the hamstring muscle. This can be seen on an ultrasound but this often does not change the management. It does not appear on exam that you have any bony injuries. Treatment for a muscle strain is supportive and includes NSAIDS (ibuprofen), tylenol, cool compress, and light compression. It should slowly improve over the next couple of weeks but can take 4+ weeks to fully resolve. PT exercises can be helpful once improving. If worsening or new symptoms arise, please see PCP or return to the ER if needed. Forms: PCP List Discharge Date/Time: 07/07/23 13:18
== END 2023-07-07 13:18 | disposition home or self-care (01) ==
LOC: ED 12:20
DX: S76.311A Strain of muscle, fascia and tendon of the posterior muscle group at thigh level, right thigh, initial encounter (principal); W54.1XXA Struck by dog, initial encounter; Y92.830 Public park as the place of occurrence of the external cause
CPT/HCPCS: 99283

== ENCOUNTER 2023-07-28 11:16 | Outpatient (CLI) | payer MEDICARE ==
--- NOTE | 2023-07-31 10:01 | Mammography Report ---
BILATERAL DIGITAL SCREENING MAMMOGRAM 3D/2D: 07/28/2023 CLINICAL: Routine screening. Comparison is made to exams dated: 04/28/2022 mammogram, 04/02/2021 mammogram, 08/08/2018 mammogram, mammogram, and 03/17/2016 mammogram - [facility]. There are scattered areas of fibroglandular density in both breasts (category b / 25%-50% glandular t issue). No significant masses, calcifications, or other findings are seen in either breast. There has been no significant interval change. IMPRESSION: NEGATIVE There is no mammographic evidence of malignancy. A 1 year screening mammogram is recommended. Based on the Tyrer Cuzick model (a risk assessment model) the patients lifetime risk is 5.1% and her 10 year risk is 2.8%. According to the ACR, ACS, and NCCN guidelines, an annual breast MRI exam josé luis g with mammogram is recommended if the patients lifetime risk is 20% or greater. This exam was interpreted at Station ID: [id number]. NOTE: For mammograms, a report in lay terms will be sent to the patient. Approximately 15% of breast malignancies will not be visualized mammographically. In the management of a palpable breast mass, a negative mammogram must not discourage biopsy of a clinically suspicious lesion. Electronically Signed By: Dioni [email or web address]:07/28/2023 11:53:02 letter sent: No_Letter ACR BI-RADS Category 1: Negative 3341F PARENCHYMAL PATTERN: (A) - The breast(s) demonstrate(s) scattered fibroglandular densities. BI-RADS CATEGORY: (1) - 1 Mammogram [id number] 1 year screening LATERALITY: (B)
== END 2023-07-28 11:17 | disposition home or self-care (01) ==
LOC: DI 11:16
DX: Z12.31 Encounter for screening mammogram for malignant neoplasm of breast (principal); R92.323 Mammographic fibroglandular density, bilateral breasts